=== PATIENT | female | born 1955 | race Two or more races ===

== ENCOUNTER 2023-07-14 18:56 | Inpatient (IN) | payer MEDICARE, OTHER ==
[~2023-07-14] VITALS: Ht 170.2 cm; Wt 90.7 kg
[2023-07-14] MEDS ORDERED: NITR100C11 PO (19:08)
[2023-07-14] MEDS ORDERED: MORP30TA7 PO (19:08)
[2023-07-14] MEDS ORDERED: OLME20TA23 PO (19:08)
[2023-07-14 19:56] LABS: BASOPHILS # (AUTO) 0.1 K/UL (0.0-0.2); BASOPHILS % (AUTO) 0.8 % (0.0-2.0); EOSINOPHILS # (AUTO) 0.1 K/uL (0.0-0.7); HEMATOCRIT 33.8 % (31.2-41.9); HEMOGLOBIN 11.4 g/dL (10.9-14.3); LYMPHOCYTES # (AUTO) 0.6 K/uL (0.8-4.8); LYMPHOCYTES % (AUTO) 9.4 % (20.5-51.5); MEAN CORPUSCULAR HEMOGLOBIN 34.6 uug (24.7-32.8); MEAN CORPUSCULAR HGB CONC 34 g/dL (32.3-35.6); MEAN CORPUSCULAR VOLUME 103.2 fL (75.5-95.3); MONOCYTES # (AUTO) 0.3 K/uL (0.1-1.30); MONOCYTES % (AUTO) 4.8 % (0.0-11.0); NEUTROPHILS # (AUTO) 5.4 K/uL (1.8-8.9); PLATELET COUNT (AUTO) 230 K/uL (179-408); RED BLOOD CELL COUNT(AUTO) 3.28 MIL/uL (3.63-4.92); RED CELL DISTRIBUTION WIDTH 13.6 % (12.3-17.7); WHITE BLOOD COUNT (AUTO) 6.5 K/uL (3.8-11.8)
[2023-07-14 20:22] LABS: DIFFERENTIAL COMMENT 1
[2023-07-14 20:26] LABS: CALCIUM 9.2 mg/dL (8.5-10.1); CREATININE 2.4 mg/dL (0.6-1.3); POTASSIUM 4.5 mmol/L (3.5-5.1)
[2023-07-14 20:33] LABS: ALBUMIN 3.2 g/dL (3.4-5.0); BILIRUBIN,DIRECT 0.1 mg/dL (0.0-0.2); BILIRUBIN,TOTAL 0.3 mg/dL (0.2-1.0); TOTAL PROTEIN, SERUM 7.1 g/dL (6.4-8.2)
[2023-07-14 22:03] LABS: *BILIRUBIN,URIN NEGATIVE (NEGATIVE); *BLOOD, URINE 2+ (NEGATIVE); *CLARITY,URINE SLIGHTLY CLOUDY (CLEAR); *COLOR,URINE YELLOW (YELLOW); *KETONES,URINE TRACE (NEGATIVE); *PROTEIN,URINE 2+ (NEGATIVE); *UROBILINOGEN,URINE 0.2 E.U./dl (NORMAL); LEUKOCYTE ESTERASE ,URINE 2+ (NEGATIVE); NITRITE, URINE POSITIVE (NEGATIVE); PH,URINE 5.5 (5.0-8.0); UGLUCOSE NEGATIVE (NEGATIVE)
[2023-07-14 23:07] LABS: BACTERIA,URINE MANY /HPF (NONE SEEN); SQUAMOUS EPITHELIAL CELL,UR FEW /HPF (NONE SEEN); WBC,URINE TNTC /HPF (0-3)
[2023-07-14] MEDS ORDERED: MAGNESIUM HYDROXIDE 30 ML LIQUID UDC PO PRN (23:15)
[2023-07-14] MEDS ORDERED: ONDANSETRON 4 MG/2 ML VIAL IV PRN (23:15)
[2023-07-14] MEDS ORDERED: REMEDY ESSENTIAL ZINC PASTE 113 GM TP PRN (23:15)
[2023-07-14] MEDS: CEFTRIAXONE 1 G in IV DEXTROSE 5% 50 ML IV SCH (23:30)
[2023-07-15] MEDS ORDERED: CEFTRIAXONE /D5W 50ML IVPB **ER PYXIS IV ONE ×2 (01:57→21:51)
[2023-07-15] MEDS ORDERED: MORPHINE SULFATE 2 MG/1 ML DISP.SYRIN ONE (01:57)
[2023-07-15] MEDS ORDERED: MORPHINE SULFATE 4 MG/1 ML DISP.SYRIN ONE (01:57)
[2023-07-15] MEDS: MORPHINE SULFATE 4 MG/1 ML DISP.SYRIN IV ONE (02:02)
[2023-07-15 08:09] LABS: BASOPHILS % (AUTO) 0.3 % (0.0-2.0); EOSINOPHILS # (AUTO) 0.2 K/uL (0.0-0.7); HEMATOCRIT 31.8 % (31.2-41.9); HEMOGLOBIN 10.7 g/dL (10.9-14.3); LYMPHOCYTES % (AUTO) 15.9 % (20.5-51.5); MEAN CORPUSCULAR HEMOGLOBIN 34.7 uug (24.7-32.8); MEAN CORPUSCULAR HGB CONC 34 g/dL (32.3-35.6); MEAN CORPUSCULAR VOLUME 102.9 fL (75.5-95.3); MONOCYTES # (AUTO) 0.4 K/uL (0.1-1.30); MONOCYTES % (AUTO) 5.9 % (0.0-11.0); NEUTROPHILS # (AUTO) 4.5 K/uL (1.8-8.9); NEUTROPHILS % (AUTO) 73.9 % (38.5-71.5); RED BLOOD CELL COUNT(AUTO) 3.09 MIL/uL (3.63-4.92); RED CELL DISTRIBUTION WIDTH 13.6 % (12.3-17.7)
[2023-07-15 08:10] LABS: DIFFERENTIAL COMMENT 1; PLATELET COUNT (AUTO) 217 K/uL (179-408)
[2023-07-15 08:11] LABS: CALCIUM 8.8 mg/dL (8.5-10.1); MAGNESIUM 2.6 mg/dL (1.8-2.4); PHOSPHOROUS 4.5 mg/dL (2.5-4.9); POTASSIUM 4.7 mmol/L (3.5-5.1)
[2023-07-15 08:58] LABS: THYROID STIMULATING HORMONE 1.2 mIU/mL (0.358-3.740)
[2023-07-15] MEDS ORDERED: ACETAMINOPHEN 325 MG TABLET ONE ×2 (09:41→17:35)
[2023-07-15] MEDS: ACETAMINOPHEN 325 MG TABLET PO PRN (09:45)
[2023-07-15] MEDS: ENOXAPARIN SODIUM 40 MG/0.4 ML DISP.SYRIN SQ SCH (21:37)
[2023-07-15 22:00] VITALS: BP 122/67; TEMP 97.5; O2SAT 100
[2023-07-16] MEDS: CEFTRIAXONE 1 G in IV DEXTROSE 5% 50 ML IV SCH (01:35)
[2023-07-16 06:53] VITALS: BP 104/47; TEMP 98.1; O2SAT 98
[2023-07-16 07:05] LABS: BASOPHILS % (AUTO) 0.6 % (0.0-2.0); DIFFERENTIAL COMMENT 0; EOSINOPHILS # (AUTO) 0.2 K/uL (0.0-0.7); EOSINOPHILS % (AUTO) 3.7 % (0.0-7.0); HEMATOCRIT 31.2 % (31.2-41.9); HEMOGLOBIN 10.8 g/dL (10.9-14.3); LYMPHOCYTES # (AUTO) 0.5 K/uL (0.8-4.8); LYMPHOCYTES % (AUTO) 12.7 % (20.5-51.5); MEAN CORPUSCULAR HEMOGLOBIN 35.5 uug (24.7-32.8); MEAN CORPUSCULAR HGB CONC 35 g/dL (32.3-35.6); MEAN CORPUSCULAR VOLUME 102.4 fL (75.5-95.3); MONOCYTES # (AUTO) 0.4 K/uL (0.1-1.30); MONOCYTES % (AUTO) 8.4 % (0.0-11.0); NEUTROPHILS # (AUTO) 3.2 K/uL (1.8-8.9); NEUTROPHILS % (AUTO) 74.6 % (38.5-71.5); PLATELET COUNT (AUTO) 202 K/uL (179-408); RED BLOOD CELL COUNT(AUTO) 3.05 MIL/uL (3.63-4.92); RED CELL DISTRIBUTION WIDTH 13.6 % (12.3-17.7); WHITE BLOOD COUNT (AUTO) 4.2 K/uL (3.8-11.8)
[2023-07-16 07:32] LABS: ALBUMIN 2.7 g/dL (3.4-5.0); BILIRUBIN,TOTAL 0.3 mg/dL (0.2-1.0); MAGNESIUM 2.2 mg/dL (1.8-2.4); PHOSPHOROUS 4.4 mg/dL (2.5-4.9); POTASSIUM 5.1 mmol/L (3.5-5.1); TOTAL PROTEIN, SERUM 6.2 g/dL (6.4-8.2)
[2023-07-16 09:55] LABS: *BILIRUBIN,URIN NEGATIVE (NEGATIVE); *CLARITY,URINE CLEAR (CLEAR); *COLOR,URINE YELLOW (YELLOW); *KETONES,URINE NEGATIVE (NEGATIVE); *PROTEIN,URINE TRACE (NEGATIVE); *UROBILINOGEN,URINE 0.2 E.U./dl (NORMAL); LEUKOCYTE ESTERASE ,URINE 1+ (NEGATIVE); NITRITE, URINE NEGATIVE (NEGATIVE); UGLUCOSE NEGATIVE (NEGATIVE)
[2023-07-16 10:00] LABS: *BLOOD, URINE TRACE (NEGATIVE)
[2023-07-16 10:04] LABS: *CREATININE,URINE 49.4 mg/dL (30-125)
[2023-07-16] MEDS: HYDROCODONE/APAP 5-325MG TABLET PO PRN (10:37)
[2023-07-16 10:48] LABS: BACTERIA,URINE RARE /HPF (NONE SEEN); SQUAMOUS EPITHELIAL CELL,UR FEW /HPF (NONE SEEN); WBC,URINE 50-80 /HPF (0-3)
[2023-07-16 11:48] VITALS: BP 90/49; TEMP 97.3; O2SAT 96
[2023-07-16 16:41] VITALS: BP 110/48; TEMP 98.2; O2SAT 97
[2023-07-16 20:00] VITALS: BP 101/48; TEMP 98.4; O2SAT 91
[2023-07-17] VITALS: BP 107/43; TEMP 98.8; O2SAT 97
[2023-07-17 01:37] VITALS: O2SAT 97
[2023-07-17 04:00] VITALS: BP 116/54; TEMP 98.7; O2SAT 96
[2023-07-17 05:12] LABS: PTH, INTACT 14 pg/mL (15-65)
[2023-07-17 12:00] VITALS: BP_SYST 114; BP_SYST 119; BP_DIAS 44; BP_DIAS 53; TEMP 97.8; TEMP 98.3; O2SAT 94
[2023-07-17] MEDS ORDERED: CEPH500T PO (14:15)
[2023-07-17 15:29] VITALS: BP 92/59; TEMP 98.6; O2SAT 94
[2023-07-17 20:12] VITALS: BP 113/55; TEMP 98; O2SAT 96
[2023-07-18 00:08] VITALS: O2SAT 97
[2023-07-18 04:04] VITALS: BP 120/66; TEMP 98.4; O2SAT 96
[2023-07-18 11:58] VITALS: BP 115/88; TEMP 97.4; O2SAT 100
[2023-07-20 06:08] LABS: A/G RATIO 1.1 (0.7-1.7); ALPHA-1-GLOBULIN 0.3 g/dL (0.0-0.4); ALPHA-2-GLOBULIN 0.5 g/dL (0.4-1.0); GAMMA GLOBULIN 0.9 g/dL (0.4-1.8); GLOBULIN, TOTAL 2.7 g/dL (2.2-3.9); M-SPIKE Not Observed g/dL (Not Observed)
== END 2023-07-18 12:15 | DRG 683 ==
LOC: ER 19:02 → TRANSITION 07-15 07:30 → MEDSURG3 07-15 20:35
PROVIDERS: ADMIT Nurse Practitioner Acute Care; ATTEND Nurse Practitioner Acute Care
DX: N17.9 Acute kidney failure, unspecified (principal); N39.0 Urinary tract infection, site not specified; R62.7 Adult failure to thrive; Z68.31 Body mass index [BMI] 31.0-31.9, adult; I12.9 Hypertensive chronic kidney disease with stage 1 through stage 4 chronic kidney disease, or unspecified chronic kidney disease; G89.29 Other chronic pain; N18.9 Chronic kidney disease, unspecified; E66.9 Obesity, unspecified; Z87.440 Personal history of urinary (tract) infections; M54.50 Low back pain, unspecified; R53.1 Weakness
CPT/HCPCS: 36415; 71045; 76770; 83735; 83970; 84100; 84155; 84165; 84300; 84443; 85025; 93005; G0378; J0696; J1650; J2270